=== PATIENT | female | born 1925 | race Caucasian/White ===

== ENCOUNTER 2016-11-07 13:56 | Emergency (ER) | payer MEDICARE, BC ==
[~2016-11-07] VITALS: Ht 165.1 cm; Wt 59.0 kg
[2016-11-07] MEDS ORDERED: HYDR-3972 PO (14:26)
[2016-11-07] MEDS ORDERED: LISI10TA5 PO (14:26)
[2016-11-07] MEDS ORDERED: GABA-532 PO (14:26)
[2016-11-07] MEDS ORDERED: CELE100C PO (14:28)
[2016-11-07] MEDS ORDERED: METH500T PO (14:28)
[2016-11-07] MEDS ORDERED: MINERAL OIL FLEET ENEMA 133 ML BOTTLE RC ONE ×2 (14:30→14:49)
[2016-11-07] MEDS ORDERED: MAGNESIUM HYDROXIDE 30 ML LIQUID UDC PO ONE (14:30)
[2016-11-07] MEDS ORDERED: MAGNESIUM CITRATE 296 ML BOTTLE PO ONE (14:30)
--- NOTE | 2016-11-07 14:47 | NUR ---
Xray done, family at the bedside.
[2016-11-07] MEDS ORDERED: MAGNESIUM CITRATE 296 ML BOTTLE ONE (14:49)
[2016-11-07] MEDS ORDERED: MAGNESIUM HYDROXIDE 30 ML LIQUID UDC ONE (14:49)
--- NOTE | 2016-11-07 15:37 | NUR ---
Patient discharged to home in stable conditon. Written and verbal after care instructions given. Patient and pt's family verbalize understanding of instructions. Pt left ER accompained by family.
[2016-11-07 15:39] VITALS: BP 154/80
== END 2016-11-07 15:39 | disposition home or self-care (01) ==
LOC: ER 13:56
DX: K59.00 Constipation, unspecified (principal); I10 Essential (primary) hypertension
CPT/HCPCS: 71010; 99284; A4663